=== PATIENT | female | born 1955 | race Caucasian/White ===

== ENCOUNTER 2018-06-21 23:17 | Inpatient (IN) | payer MEDICAID ==
[~2018-06-21] VITALS: Ht 160 cm; Wt 46.4 kg
[~2018-06-21 23:17] MED LIST: ASPI-1265 PO; BENA10TA11 PO; BUTA-281 PO; HYDR-3972 PO; LORA0.5T PO; WALKERFR
[2018-06-21] MEDS ORDERED: normal saline 1000ML IV soln IVB ONE (23:35)
[2018-06-21] MEDS ORDERED: ondansetron/PF 4mg/2ml inj IV ONE (23:35)
--- NOTE | 2018-06-21 23:48 | NUR ---
TO XRAY VIA [facility]
[2018-06-21 23:52] LABS: BASOPHILS % (AUTO) 0.5 % (0-1); EOSINOPHILS # (AUTO) 0.2 X10'3 (0-0.9); EOSINOPHILS % (AUTO) 1.9 % (0-6); HEMATOCRIT 36.8 % (35.0-45.0); HEMOGLOBIN 12.5 g/dl (12.0-16.0); LYMPHOCYTES % (AUTO) 12.5 % (21-51); MEAN CORPUSCULAR HEMOGLOBIN 31.6 PG (27.0-31.0); MEAN CORPUSCULAR HGB CONC 34.1 % (33.0-36.5); MEAN CORPUSCULAR VOLUME 92.7 FL (78-98); MEAN PLATELET VOLUME 8.2 FL (7.4-10.4); MONOCYTES # (AUTO) 0.4 X10'3 (0-0.9); MONOCYTES % (AUTO) 5.1 % (2-12); NEUTROPHILS # (AUTO) 6.4 X10'3 (1.8-7.7); PLATELET COUNT 227 X10'3 (140-440); RED BLOOD COUNT 3.97 X10'6 (4.20-5.60); RED CELL DISTRIBUTION WIDTH 12.4 % (11.5-14.5)
[2018-06-22 00:27] LABS: PARTIAL THROMBOPLASTIN TIME 25 SECONDS (22-32); PROTHROMBIN TIME 10.3 SECONDS (9.0-12.0)
[2018-06-22] MEDS ORDERED: ondansetron/PF 4mg/2ml inj IV ONE ×2 (01:10)
[2018-06-22] MEDS ORDERED: morphine 4 MG/ML inj SYRINge IV PRN ×2 (01:10→01:45)
[2018-06-22] MEDS ORDERED: morphine 4 MG/ML inj SYRINge IV ONE ×2 (01:10)
[2018-06-22 01:24] LABS: ALANINE AMINOTRANSFERASE 25 U/L (12-78); ALBUMIN 3.8 G/DL (3.4-5.0); ALBUMIN/GLOBULIN RATIO 1.1 (1.1-1.5); ALKALINE PHOSPHATASE 151 IU/L (46-116); ANION GAP 21 (8-16); ASPARTATE AMINO TRANSFERASE 23 U/L (10-37); BILIRUBIN,TOTAL 0.3 MG/DL (0.1-1.0); BLOOD UREA NITROGEN 14 MG/DL (7-18); BUN/CREATININE RATIO 16.7 (6.6-38.0); CHLORIDE 102 MMOL/L (99-107); CREATININE 0.84 MG/DL (0.40-0.90); GLUCOSE 114 MG/DL (70-104); LIPASE 168 U/L (73-393); MAGNESIUM 1.5 MG/DL (1.5-2.4); POTASSIUM 3.7 MMOL/L (3.5-5.1); SODIUM 140 MMOL/L (135-145); TOTAL CARBON DIOXIDE 17.5 MMOL/L (24-32); TOTAL PROTEIN 7.4 G/DL (6.4-8.2); eGFR 68 ML/MIN
[2018-06-22 01:26] LABS: ETHANOL < 0.010 GM/DL (0.0-0.010)
[2018-06-22] MEDS ORDERED: acetaminophen 325mg tablet PO PRN ×2 (01:45)
[2018-06-22] MEDS ORDERED: bisacodyl 10mg suppository rectal RC PRN (01:45)
[2018-06-22] MEDS ORDERED: dextrose 5%-1/2 normal saline 1,000 ML IV SCH (01:45)
[2018-06-22] MEDS ORDERED: normal saline 1000ml 1,000 ML IV SCH (01:45)
[2018-06-22] MEDS ORDERED: diphenhydrAMINE 25mg capsule PO PRN (01:45)
[2018-06-22] MEDS ORDERED: acetaminophen 650mg rectal suppository RC PRN (01:45)
[2018-06-22] MEDS ORDERED: metoclopramide 5 mg/ml inj IV PRN (01:45)
[2018-06-22] MEDS ORDERED: diphenhydrAMINE 50 mg/ml inj IV PRN (01:45)
[2018-06-22] MEDS ORDERED: ondansetron/PF 4mg/2ml inj IV PRN (01:45)
[2018-06-22] MEDS ORDERED: mag hydrox/Alum hydrox/simeth 30ml oral suspension PO PRN (01:45)
[2018-06-22] MEDS ORDERED: magnesium hydroxide 30ml (MOM) UD suspension PO PRN (01:45)
--- NOTE | 2018-06-22 02:30 | NUR ---
Called Dr. Cortes to infom him that bed 3 wants to AMA. He told me to make sure the nurse informs the PT of all the risks. I informed [place] LAY and charge nurse
[2018-06-22] MEDS: HYDROmorphone 1 mg/ml syringe IV PRN ×2 (02:54→08:51)
--- NOTE | 2018-06-22 04:15 | NUR ---
Received patient to floor via gurney. Patient able to assist in walking to bed. Vital signs taken. Call light placed within reach. Bed locked and low
[2018-06-22 04:23] VITALS: BP 117/68
[2018-06-22] MEDS: HYDROcodone/acetaminophen 10/325mg tab PO PRN ×2 (05:15→10:13)
[2018-06-22 06:00] VITALS: BP 115/57
--- NOTE | 2018-06-22 06:18 | NUR ---
Patient in room [facility] 4012. I have received report from ESDRAS LAY and had the opportunity to ask questions and assume patient care.
--- NOTE | 2018-06-22 06:27 | NUR ---
Problems reprioritized. Patient report given, questions answered & plan of care reviewed with Rosy LAY.
[2018-06-22] MEDS ORDERED: docusate sod 100mg capsule PO SCH (08:00)
[2018-06-22] MEDS ORDERED: pantoprazole 40 MG vial IV SCH (08:00)
[2018-06-22 10:00] VITALS: BP 116/68
--- NOTE | 2018-06-22 10:20 | NUR ---
IV INFILTRATED, PATIENT REFUSING NEW IV AT THIS TIME. DOESN'T WANT TO STAY IN THE HOSPITAL.
--- NOTE | 2018-06-22 11:46 | NUR ---
PAGER ID: [phone] MESSAGE: [id number] RE: [phone] [id number] PATIENT WANTS TO LEAVE AMA. DID YOU HERE FROM DR HINKLE?
[2018-06-22] MEDS ORDERED: temazepam 15mg capsule PO PRN (21:00)
== END 2018-06-22 11:45 | disposition home or self-care (01) | DRG 342 ==
LOC: ER 23:18 → ED HOLD 06-22 01:45 → ORTHO 4S 06-22 04:15
PROVIDERS: ADMIT Family Medicine; ATTEND Family Medicine
DX: S42.421A Displaced comminuted supracondylar fracture without intercondylar fracture of right humerus, initial encounter for closed fracture (principal); I10 Essential (primary) hypertension; J45.909 Unspecified asthma, uncomplicated; W18.2XXA Fall in (into) shower or empty bathtub, initial encounter; Y93.89 Activity, other specified; Y92.89 Other specified places as the place of occurrence of the external cause; Y99.8 Other external cause status; Z88.6 Allergy status to analgesic agent; Z88.1 Allergy status to other antibiotic agents; Z79.899 Other long term (current) drug therapy
CPT/HCPCS: 36415; 71045; 72170; 73030; 80053; 80320; 83690; 83735; 83880; 84100; 84484; 85025; 85610; 85730; 87070; 93005; 96361; 96374; 96375; 96376; 99285; C9113; G0378; J1170; J2270; J2405